=== PATIENT | female | born 1945 | race Caucasian/White ===

== ENCOUNTER 2024-07-25 15:29 | Outpatient (CLI) | payer MEDICARE | END 2024-07-25 15:30 | disposition home or self-care (01) | LOC: CSHMAMMO 15:29 | PROVIDERS: ATTEND Internal Medicine Hematology & Oncology | DX: M85.89 Other specified disorders of bone density and structure, multiple sites (principal); C50.812 Malignant neoplasm of overlapping sites of left female breast | CPT/HCPCS: 77080 ==